=== PATIENT | male | born 1975 ===

== ENCOUNTER 2019-08-09 09:34 | Emergency (ER) | payer OTHER ==
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
[2019-08-09] MEDS ORDERED: Acetaminophen / Codeine* #3 (300 MG/30 MG) TAB PO ONE (10:35)
[2019-08-09 12:17] VITALS: BP 145/98
== END 2019-08-09 12:14 | disposition home or self-care (01) ==
LOC: UCEAST 09:34
DX: S22.32XD Fracture of one rib, left side, subsequent encounter for fracture with routine healing (principal); S20.212A Contusion of left front wall of thorax, initial encounter; F17.210 Nicotine dependence, cigarettes, uncomplicated; R20.2 Paresthesia of skin; M25.512 Pain in left shoulder; R03.0 Elevated blood-pressure reading, without diagnosis of hypertension; R07.81 Pleurodynia; V29.9XXD Motorcycle rider (driver) (passenger) injured in unspecified traffic accident, subsequent encounter
CPT/HCPCS: 99202; A9270-GY; G0463